=== PATIENT | male | born 1960 | race Two or more races ===

== ENCOUNTER 2023-11-23 05:44 | Emergency (ER) | payer BC, OTHER ==
[~2023-11-23] VITALS: Ht 185.4 cm; Wt 94.3 kg
[2023-11-23 07:21] VITALS: BP 123/88; TEMP 98; O2SAT 97
== END 2023-11-23 07:21 | disposition home or self-care (01) ==
LOC: ER 05:46
DX: S01.81XA Laceration without foreign body of other part of head, initial encounter (principal); S13.4XXA Sprain of ligaments of cervical spine, initial encounter; S09.90XA Unspecified injury of head, initial encounter; E78.5 Hyperlipidemia, unspecified; V89.2XXA Person injured in unspecified motor-vehicle accident, traffic, initial encounter; Y93.89 Activity, other specified; Y92.89 Other specified places as the place of occurrence of the external cause; Y99.8 Other external cause status
CPT/HCPCS: 70450-TC; 72125-TC